=== PATIENT | male | born 1960 | race Caucasian/White ===

== ENCOUNTER → 2017-01-31 | Outpatient (CLI) | payer OTHER ==
[~2017-01-31] MED LIST: ANAPROX DS550 MG PO; ASPIRIN81 M1 PO; ATORVASTATIN CA40 M1 PO; FLEXERIL5 MG PO; FLOVENT HFA12 GM INH; HYDROCHLOROTHIA50 M1 PO; JANUMET 1000 MG1 TA1 PO; LANTUS100 U/ML SQ; LISINOPRIL40 MG PO; MOBIC15 MG PO; NOVOLOG10 ML SQ; ORPHENADRINE E100 MG PO; PERCOCET 325 MG1 TA6 PO; PERCOCET 325 MG1 TA7 PO; TRULICITY0.75 MG/0. SC; ULTRAM50 MG PO; VENTOLIN H0.09 MG/AC INH; VICODIN 5/500 505 MG PO
--- NOTE | ~2017-01-31 | ST ---
[place], [place] EXERCISE STRESS TEST REPORT [facility]: [id number] UNIT #: [id number] ROOM: DOCTOR: MAHSA LOUIS MD BIRTHDATE: [birth year] DOS: 01/31/2017 PROCEDURE: Pharmacologic stress test. INDICATIONS: Precordial chest pain, multiple risk factors. PROCEDURE IN DETAIL: The patient was given a rapid infusion of regadenoson 0.4 mg intravenously followed by a saline flush. He felt warm, dyspneic and developed headache. The resting heart rate of 80 ricardo to 108. The resting blood pressure of 138/74 fell to 130/68. His resting electrocardiogram was normal and no changes occurred with the infusion. 40 seconds after the infusion, he was given radionuclide intravenously. IMPRESSION: 1. Well tolerated infusion of regadenoson. 2. Radionuclide injected. Please see the separate imaging report for further details of the patient's stress test results. MAHSA LOUIS MD CM:STRESS:EXERCISE STRESS TEST REPORT [id number] MAHSA LOUIS MD
== END | disposition home or self-care (01) ==
LOC: CARD 00:42
DX: R07.2 Precordial pain (principal); R42 Dizziness and giddiness

== ENCOUNTER → 2017-02-04 | Outpatient (CLI) | payer OTHER | END | disposition home or self-care (01) | LOC: US 12:30 | DX: I65.23 Occlusion and stenosis of bilateral carotid arteries (principal); I10 Essential (primary) hypertension; E11.9 Type 2 diabetes mellitus without complications; R42 Dizziness and giddiness; R07.9 Chest pain, unspecified; R51 Headache; F17.200 Nicotine dependence, unspecified, uncomplicated ==

== ENCOUNTER → 2017-02-21 | Outpatient (CLI) | payer OTHER | END | disposition home or self-care (01) | LOC: MRI 08:44 | DX: J32.0 Chronic maxillary sinusitis (principal); J32.3 Chronic sphenoidal sinusitis ==

== ENCOUNTER → 2017-04-09 | Day surgery (SDC) | payer OTHER ==
[~2017-04-09] VITALS: Ht 167.6 cm; Wt 76.2 kg
--- NOTE | ~2017-04-09 | O ---
[place], [place] OPERATIVE NOTE [id number] UNIT #: [id number] ROOM: DOCTOR: ABE VILLA MD BIRTHDATE: [birth year] DOS: 04/09/2017 PREOPERATIVE DIAGNOSIS: Vertigo. POSTOPERATIVE DIAGNOSIS: Vertigo. PROCEDURE: Bilateral intratympanic dexamethasone injection. SURGEON: Dr. Villa. ANESTHESIA: General. DESCRIPTION OF PROCEDURE: The patient is being taken to the operating room for bilateral intratympanic dexamethasone injection. He was taken to the OR where IV sedation with propofol was induced. He was positioned supine on the OR table and draped in a standard fashion for ear surgery. The right ear was examined first. A 1 mL of dexamethasone 10 mg per mL was injected into the right middle ear space. The procedure was treated on the left ear without difficulty. At the end of the case, all instrument and sponge counts were correct. The patient was awakened and transported to PACU in satisfactory condition. ABE VILLA MD CM:OPRECORD:OPERATIVE NOTE 1000 1013 ABE VILLA MD 04/10/17 1012 interface
[2017-04-09 12:50] VITALS: BP 144/83
[2017-04-09 13:53] VITALS: BP 100/58
[2017-04-09 14:05] VITALS: BP 104/66
[2017-04-09 14:24] VITALS: BP 103/64
== END | disposition home or self-care (01) ==
LOC: SDC 04-04 12:30
DX: R42 Dizziness and giddiness (principal); I10 Essential (primary) hypertension; J44.9 Chronic obstructive pulmonary disease, unspecified; E11.9 Type 2 diabetes mellitus without complications; Z98.890 Other specified postprocedural states; Z83.3 Family history of diabetes mellitus; Z82.3 Family history of stroke; Z82.49 Family history of ischemic heart disease and other diseases of the circulatory system

== ENCOUNTER → 2017-06-04 | Outpatient (CLI) | payer OTHER | END | disposition home or self-care (01) | LOC: RAD 09:50 | DX: M51.37 Other intervertebral disc degeneration, lumbosacral region (principal); M47.817 Spondylosis without myelopathy or radiculopathy, lumbosacral region ==

== ENCOUNTER 2017-12-02 10:25 | Emergency (ER) | payer OTHER ==
[~2017-12-02] VITALS: Ht 167.6 cm; Wt 77.1 kg
--- NOTE | ~2017-12-02 | EKG ---
[place], [place] ELECTROCARDIOGRAM REPORT NAME: MARIO PRUETT UNIT #: [id number] ROOM: DOCTOR: JUANPABLO LUI MD BIRTHDATE: [birth year] DOS: 12/02/2017 TIME: 1047 hours. Normal sinus rhythm at 81 beats per minute. The tracing is normal. No previous tracing is available for comparison. JUANPABLO LUI MD CM:EKGRPT:ELECTROCARDIOGRAM REPORT [id number] JUANPABLO LUI MD
[~2017-12-02 10:25] MED LIST changes: -ARTIFICIAL TEA3.5 G1 OP; -ARTIFICIAL TEAR15 M9 OP; -PREDNISONE50 MG PO; -VALTREX500 MG PO
[2017-12-02 11:01] LABS: BASO # 0.1 10*3/uL (0.0-0.1); BASO % 1.2 % (0.0-1.0); EOS # 0.5 10*3/uL (0.0-0.4); EOS % 4.7 % (1.0-4.0); HEMATOCRIT 41.7 % (42.0-52.0); HEMOGLOBIN 14.9 g/dl (14.0-18.0); LYMPH # 2.1 10*3/uL (1.3-4.4); LYMPH % 19.5 % (27.0-41.0); MEAN CELL VOLUME 84.2 fl (80.0-94.0); MEAN CORPUSCULAR HGB 30.1 pg (27.0-31.0); MEAN CORPUSCULAR HGB CONC 35.7 g/dl (33.0-37.0); MEAN PLATELET VOLUME 10.9 fl (9.6-12.3); MONO # 0.8 10*3/uL (0.1-1.0); MONO % 7.1 % (3.0-9.0); NEUT # 7.3 10*3/uL (2.3-7.9); PLATELET COUNT AUTOMATED 153 10*3/uL (130-400); RED BLOOD COUNT 4.95 10*6/uL (4.50-5.90); WHITE BLOOD COUNT 10.9 10*3/uL (4.8-10.8)
[2017-12-02 11:11] LABS: ACT PARTIAL THROMBO TIME 23.5 SECONDS (20.8-31.5); INTERNATIONAL NORM RATIO 0.9 (2.0-3.5)
[2017-12-02 11:16] LABS: BUN 15 mg/dl (7-24); CHLORIDE 101 mmol/L (98-107); CREATININE 0.92 mg/dL (0.70-1.30); POTASSIUM 3.7 mmol/L (3.5-5.1); SODIUM 138 mmol/L (136-145)
[2017-12-02 11:17] LABS: TROPONIN I < 0.015 ng/ml (<0.045)
[2017-12-02] MEDS ORDERED: PREDNISONE50 MG PO (11:58)
[2017-12-02] MEDS ORDERED: VALTREX500 MG PO (11:58)
[2017-12-02] MEDS ORDERED: ARTIFICIAL TEAR15 M9 OP (12:00)
[2017-12-02] MEDS ORDERED: ARTIFICIAL TEA3.5 G1 OP (12:00)
== END 2017-12-02 12:31 | disposition home or self-care (01) ==
LOC: ED 10:25
PROVIDERS: Emergency Medicine
DX: G51.0 Bell's palsy (principal); E11.9 Type 2 diabetes mellitus without complications; I10 Essential (primary) hypertension; E78.00 Pure hypercholesterolemia, unspecified; F17.200 Nicotine dependence, unspecified, uncomplicated; Z79.899 Other long term (current) drug therapy; Z79.82 Long term (current) use of aspirin; Z79.4 Long term (current) use of insulin

== ENCOUNTER → 2017-12-02 | Outpatient (CLI) | payer OTHER ==
[~2017-12-02] MED LIST changes: +ARTIFICIAL TEA3.5 G1 OP; +ARTIFICIAL TEAR15 M9 OP; +PREDNISONE50 MG PO; +VALTREX500 MG PO
== END | disposition home or self-care (01) ==
LOC: RAD 13:06
DX: M50.322 Other cervical disc degeneration at C5-C6 level (principal); M50.323 Other cervical disc degeneration at C6-C7 level; M48.02 Spinal stenosis, cervical region; R42 Dizziness and giddiness

== ENCOUNTER 2017-12-14 17:29 | Inpatient (IN) | payer OTHER ==
[~2017-12-14] VITALS: Ht 167.6 cm; Wt 77.1 kg
[~2017-12-14 17:29] MED LIST changes: +ARTIFICIAL TEA3.5 G1 OP; +ARTIFICIAL TEAR15 M9 OP; +ASPIRIN325 M2 PO; -ASPIRIN81 M1 PO; +LANTUS SOL100 UNIT/1 SC; -LANTUS100 U/ML SQ; +PREDNISONE50 MG PO; +VALTREX500 MG PO
[2017-12-14 17:37] VITALS: BP 160/85
[2017-12-14 17:47] LABS: BASO # 0.1 10*3/uL (0.0-0.1); EOS # 0.7 10*3/uL (0.0-0.4); EOS % 5.9 % (1.0-4.0); HEMOGLOBIN 15.1 g/dl (14.0-18.0); LYMPH # 3.3 10*3/uL (1.3-4.4); LYMPH % 28.5 % (27.0-41.0); MEAN CELL VOLUME 87.4 fl (80.0-94.0); MEAN CORPUSCULAR HGB 29.3 pg (27.0-31.0); MEAN CORPUSCULAR HGB CONC 33.6 g/dl (33.0-37.0); MEAN PLATELET VOLUME 11.1 fl (9.6-12.3); MONO # 0.9 10*3/uL (0.1-1.0); MONO % 7.4 % (3.0-9.0); NEUT # 6.6 10*3/uL (2.3-7.9); NEUT % 56.7 % (47.0-73.0); PLATELET COUNT AUTOMATED 213 10*3/uL (130-400); RED BLOOD COUNT 5.15 10*6/uL (4.50-5.90); RED CELL DISTRI WIDTH 13.7 % (0-14.5); WHITE BLOOD COUNT 11.6 10*3/uL (4.8-10.8)
[2017-12-14 17:57] LABS: ACT PARTIAL THROMBO TIME 24.7 SECONDS (20.8-31.5)
[2017-12-14 18:16] LABS: ALBUMIN 3.8 gm/dl (3.1-4.5); ALKALINE PHOSPHATASE 65 U/L (45-117); BUN 14 mg/dl (7-24); CHLORIDE 98 mmol/L (98-107); CREATININE 1.09 mg/dL (0.70-1.30); POTASSIUM 3.9 mmol/L (3.5-5.1); SGOT/AST 18 IU/L (3-35); SGPT/ALT 45 U/L (12-78); SODIUM 136 mmol/L (136-145); TOTAL PROTEIN 6.9 gm/dL (6.4-8.2); TROPONIN I < 0.015 ng/ml (<0.045)
[2017-12-14] MEDS ORDERED: ALOGLIPTIN-MET1 EAC1 PO (19:04)
[2017-12-14] MEDS ORDERED: NEURONTIN800 MG PO (19:05)
[2017-12-14 20:00] VITALS: BP 134/72
[2017-12-15] VITALS: BP 107/66
[2017-12-15 06:54] LABS: BASO # 0.1 10*3/uL (0.0-0.1); BASO % 0.9 % (0.0-1.0); EOS # 0.5 10*3/uL (0.0-0.4); EOS % 4.5 % (1.0-4.0); HEMATOCRIT 44.3 % (42.0-52.0); LYMPH # 2.9 10*3/uL (1.3-4.4); LYMPH % 27.5 % (27.0-41.0); MEAN CELL VOLUME 87.2 fl (80.0-94.0); MEAN CORPUSCULAR HGB 29.5 pg (27.0-31.0); MEAN CORPUSCULAR HGB CONC 33.9 g/dl (33.0-37.0); MEAN PLATELET VOLUME 11.3 fl (9.6-12.3); MONO # 0.6 10*3/uL (0.1-1.0); MONO % 5.7 % (3.0-9.0); NEUT # 6.4 10*3/uL (2.3-7.9); NEUT % 60.9 % (47.0-73.0); PLATELET COUNT AUTOMATED 209 10*3/uL (130-400); RED BLOOD COUNT 5.08 10*6/uL (4.50-5.90); RED CELL DISTRI WIDTH 13.8 % (0-14.5); WHITE BLOOD COUNT 10.6 10*3/uL (4.8-10.8)
[2017-12-15 07:18] LABS: BUN 13 mg/dl (7-24); CHLORIDE 101 mmol/L (98-107); CREATININE 0.92 mg/dL (0.70-1.30); POTASSIUM 3.7 mmol/L (3.5-5.1); SODIUM 136 mmol/L (136-145)
[2017-12-15 07:23] LABS: CHOLESTEROL 96 mg/dL (<200); HDL CHOLESTEROL 33 mg/dl (40-60); LDL CHOLESTEROL 3 mg/dL (9-159); PHOSPHOROUS 3.4 mg/dL (2.5-4.9); TRIGLYCERIDES 300 mg/dl (<150); VLDL CHOLESTEROL 60 mg/dL (6-40)
[2017-12-15 08:00] VITALS: BP 124/80
[2017-12-15 08:46] LABS: VITAMIN D, 25-HYDROXY 20.4 ng/mL (30-100)
[2017-12-15] MEDS ORDERED: AMITRIPTYLINE10 MG PO (10:21)
[2017-12-15] MEDS ORDERED: LEXAPRO10 MG PO (10:21)
[2017-12-15 11:46] VITALS: BP 139/76
[2017-12-15 16:00] VITALS: BP 133/73
[2017-12-15 20:00] VITALS: BP 146/75
[2017-12-16] VITALS: BP 119/67
[2017-12-16 04:00] VITALS: BP 120/71
[2017-12-16 08:00] VITALS: BP 118/65
[2017-12-16] MEDS ORDERED: LEVEMIR100 UNIT/1 SC (11:13)
[2017-12-16] MEDS ORDERED: VITAMIN D-32000 UNI1 PO (11:13)
[2017-12-16] MEDS ORDERED: CHANTIX1 M1 PO (11:13)
[2017-12-16] MEDS ORDERED: LOPRESSOR25 MG PO (11:13)
[2017-12-16 12:00] VITALS: BP 125/97
== END 2017-12-16 12:50 | disposition home or self-care (01) | DRG 392 ==
LOC: ED 17:29 → EDHOLD 17:40 → 5E 17:40
PROVIDERS: Emergency Medicine; Internal Medicine Nephrology
DX: K21.9 Gastro-esophageal reflux disease without esophagitis (principal); D72.1 Eosinophilia; E11.51 Type 2 diabetes mellitus with diabetic peripheral angiopathy without gangrene; E11.65 Type 2 diabetes mellitus with hyperglycemia; E83.41 Hypermagnesemia; E78.5 Hyperlipidemia, unspecified; F17.210 Nicotine dependence, cigarettes, uncomplicated; M54.9 Dorsalgia, unspecified; I10 Essential (primary) hypertension; G89.21 Chronic pain due to trauma; Z79.4 Long term (current) use of insulin; Z71.6 Tobacco abuse counseling; Z83.3 Family history of diabetes mellitus; Z82.49 Family history of ischemic heart disease and other diseases of the circulatory system; Z82.3 Family history of stroke; Z90.49 Acquired absence of other specified parts of digestive tract; Z79.899 Other long term (current) drug therapy; Z79.52 Long term (current) use of systemic steroids

== ENCOUNTER → 2017-12-23 | Outpatient (CLI) | payer OTHER ==
[~2017-12-23] MED LIST changes: +ALOGLIPTIN-MET1 EAC1 PO; +AMITRIPTYLINE10 MG PO; +CHANTIX1 M1 PO; +LEVEMIR100 UNIT/1 SC; +LEXAPRO10 MG PO; +LOPRESSOR25 MG PO; +NEURONTIN800 MG PO; +VITAMIN D-32000 UNI1 PO
== END | disposition home or self-care (01) ==
LOC: RAD 13:47
DX: M47.897 Other spondylosis, lumbosacral region (principal)

== ENCOUNTER 2018-08-17 19:43 | Emergency (ER) | payer OTHER ==
[~2018-08-17] VITALS: Ht 167.6 cm; Wt 76.2 kg
--- NOTE | ~2018-08-17 | EKG ---
[place], [place] ELECTROCARDIOGRAM REPORT NAME: MARIO PRUETT UNIT #: [id number] ROOM: DOCTOR: MALVIN DRAFT REPORT BIRTHDATE: [birth year] [facility] Test Date: 2018-08-17 Test Time: 20:07:36 Pat Name: MARIO PRUETT Department: ER Room: Gender: Journal Entry Audit Clerk: Kapil Hernandez : 1960 Requested By: DENIS FABIAN Order Number: [id number] Reading MD: Zac West MD Measurements Intervals [place] Rate: 93 P: 58 MA: 133 QRS: 74 QRSD: 92 T: 41 QT: 354 QTc: 441 Interpretive Statements Sinus rhythm Baseline wander in lead(s) V1 Electronically Signed On 08-19-2018 14:47:02 PDT by Zac West MD CM:EKGRPT:ELECTROCARDIOGRAM REPORT 06 [id number] DENIS CAMPOS DRAFT REPORT DENIS FABIAN DO
[2018-08-17 20:22] LABS: BASO # 0.2 10*3/uL (0.0-0.1); BASO % 1.5 % (0.0-1.0); EOS # 0.4 10*3/uL (0.0-0.4); EOS % 3.9 % (1.0-4.0); HEMATOCRIT 43.4 % (42.0-52.0); HEMOGLOBIN 15.8 g/dl (14.0-18.0); LYMPH # 3.3 10*3/uL (1.3-4.4); LYMPH % 31.6 % (27.0-41.0); MEAN CELL VOLUME 82.4 fl (80.0-94.0); MEAN CORPUSCULAR HGB CONC 36.4 g/dl (33.0-37.0); MEAN PLATELET VOLUME 10.6 fl (9.6-12.3); MONO # 0.6 10*3/uL (0.1-1.0); MONO % 5.8 % (3.0-9.0); NEUT % 56.8 % (47.0-73.0); PLATELET COUNT AUTOMATED 218 10*3/uL (130-400); RED BLOOD COUNT 5.27 10*6/uL (4.50-5.90); RED CELL DISTRI WIDTH 12.9 % (0-14.5); WHITE BLOOD COUNT 10.5 10*3/uL (4.8-10.8)
[2018-08-17 20:38] LABS: ALBUMIN 3.9 gm/dl (3.1-4.5); ALKALINE PHOSPHATASE 80 U/L (45-117); BUN 12 mg/dl (7-24); CHLORIDE 92 mmol/L (98-107); CREATININE 1.15 mg/dL (0.70-1.30); POTASSIUM 3.5 mmol/L (3.5-5.1); SGOT/AST 14 IU/L (3-35); SGPT/ALT 30 U/L (12-78); SODIUM 130 mmol/L (136-145); TOTAL PROTEIN 7.3 gm/dL (6.4-8.2)
[2018-08-17 20:41] LABS: TROPONIN I < 0.015 ng/ml (<0.045)
[2018-08-17] MEDS ORDERED: PREDNISONE50 MG PO (21:04)
[2018-08-17] MEDS ORDERED: AVPAK AZITHROM250 M1 PO (21:04)
== END 2018-08-17 21:15 | disposition home or self-care (01) ==
LOC: ED 19:43
PROVIDERS: Student in an Organized Health Care Education/Training Program
DX: J44.1 Chronic obstructive pulmonary disease with (acute) exacerbation (principal); E11.9 Type 2 diabetes mellitus without complications; E78.5 Hyperlipidemia, unspecified; I10 Essential (primary) hypertension; Z79.899 Other long term (current) drug therapy; Z79.82 Long term (current) use of aspirin; Z79.4 Long term (current) use of insulin; Z87.891 Personal history of nicotine dependence

== ENCOUNTER 2018-12-24 15:16 | Inpatient (IN) | payer OTHER ==
[2018-12-24] VITALS (8 sets, daily range): BP systolic 170–217; BP diastolic 80–100
[~2018-12-24] VITALS: Ht 167.6 cm; Wt 77.1 kg
--- NOTE | ~2018-12-24 | EKG ---
[place], [place] ELECTROCARDIOGRAM REPORT NAME: MARIO PRUETT UNIT #: [id number] ROOM: 411 DOCTOR: MALVIN DRAFT REPORT BIRTHDATE: [birth year] [facility] Test Date: 2018-12-24 Test Time: 15:45:48 Pat Name: MARIO PRUETT Department: Room: 411 Gender: M Senior Java Web Developer: Marah Renner : 1960 Requested By: PATTIE BENNETT DNP Order Number: [id number] Reading MD: Jayy Naqvi MD Measurements Intervals [place] Rate: 76 P: 76 [place]: 133 QRS: 85 QRSD: 93 T: 72 QT: 362 QTc: 408 Interpretive Statements Sinus rhythm RSR' in V1 or V2, probably normal variant Compared to ECG 08/17/2018 20:07:36 No significant change Electronically Signed On 12-25-2018 17:29:20 PST by Jayy Naqvi MD CM:EKGRPT:ELECTROCARDIOGRAM REPORT [id number] 1729 PATTIE FERNANDESANY DRAFT REPORT PATTIE BENNETT DNP
--- NOTE | ~2018-12-24 | EKG ---
[place], [place] ELECTROCARDIOGRAM REPORT NAME: MARIO PRUETT UNIT #: [id number] ROOM: 411 DOCTOR: MALVIN DRAFT REPORT BIRTHDATE: [birth year] [facility] Test Date: 2018-12-24 Test Time: 18:48:28 Pat Name: MARIO PRUETT Department: Room: 411 Gender: M Ring Sewer: Marah Renner : 1960 Requested By: PATTIE BENNETT DNP Order Number: [id number] Reading MD: Jayy Naqvi MD Measurements Intervals [place] Rate: 72 P: 42 [place]: 134 QRS: 57 QRSD: 98 T: 23 QT: 394 QTc: 432 Interpretive Statements Sinus rhythm Borderline ST elevation, anterior leads No change from earlier ECG this date Electronically Signed On 12-25-2018 17:37:12 PST by Jayy Naqvi MD CM:EKGRPT:ELECTROCARDIOGRAM REPORT [id number] PATTIE BENNETT DNP EPIPHANY DRAFT REPORT PATTIE BENNETT DNP
--- NOTE | ~2018-12-24 | EKG ---
[place], [place] ELECTROCARDIOGRAM REPORT NAME: MARIO PRUETT UNIT #: [id number] ROOM: 411 DOCTOR: MALVIN DRAFT REPORT BIRTHDATE: [birth year] [facility] Test Date: 2018-12-24 Test Time: 21:36:09 Pat Name: MARIO PRUETT Department: Room: 411 Gender: M Supervisor Reclamation: Marah Renner : 1960 Requested By: PATTIE BENNETT DNP Order Number: [id number] Reading MD: Jayy Naqvi MD Measurements Intervals [place] Rate: 70 P: 36 [place]: 140 QRS: 45 QRSD: 93 T: 27 QT: 386 QTc: 417 Interpretive Statements Sinus rhythm RSR' in V1 or V2, probably normal variant No change from earlier ECG this date Electronically Signed On 12-25-2018 17:41:25 PST by Jayy Naqvi MD CM:EKGRPT:ELECTROCARDIOGRAM REPORT [id number] PATTIE BENNETT DNP EPIPHANY DRAFT REPORT PATTIE BENNETT DNP
[~2018-12-24 15:16] MED LIST changes: +ASPIRIN ADULT L81 M1 PO; -ASPIRIN325 M2 PO; -ATORVASTATIN CA40 M1 PO; +AVPAK AZITHROM250 M1 PO; +LIPITOR80 MG PO; +NEURONTIN600 MG PO; -NEURONTIN800 MG PO
[2018-12-24 15:55] LABS: BASO # 0.2 10*3/uL (0.0-0.1); BASO % 1.7 % (0.0-1.0); EOS # 0.4 10*3/uL (0.0-0.4); EOS % 4.4 % (1.0-4.0); HEMATOCRIT 48.7 % (42.0-52.0); HEMOGLOBIN 16.1 g/dl (14.0-18.0); LYMPH # 2.1 10*3/uL (1.3-4.4); LYMPH % 21.4 % (27.0-41.0); MEAN CELL VOLUME 86.3 fl (80.0-94.0); MEAN CORPUSCULAR HGB 28.5 pg (27.0-31.0); MEAN CORPUSCULAR HGB CONC 33.1 g/dl (33.0-37.0); MEAN PLATELET VOLUME 11.8 fl (9.6-12.3); MONO # 0.7 10*3/uL (0.1-1.0); MONO % 7.3 % (3.0-9.0); NEUT # 6.4 10*3/uL (2.3-7.9); NEUT % 64.9 % (47.0-73.0); PLATELET COUNT AUTOMATED 160 10*3/uL (130-400); RED BLOOD COUNT 5.64 10*6/uL (4.50-5.90); RED CELL DISTRI WIDTH 14.6 % (0-14.5); WHITE BLOOD COUNT 9.8 10*3/uL (4.8-10.8)
[2018-12-24 16:03] LABS: ACT PARTIAL THROMBO TIME 23.3 SECONDS (20.8-31.5); INTERNATIONAL NORM RATIO 0.9 (2.0-3.5)
[2018-12-24 16:19] LABS: ALBUMIN 4.2 gm/dl (3.1-4.5); ALKALINE PHOSPHATASE 113 U/L (45-117); BUN 18 mg/dl (7-24); CHLORIDE 107 mmol/L (98-107); CREATININE 0.94 mg/dL (0.70-1.30); POTASSIUM 4.1 mmol/L (3.5-5.1); SGOT/AST 14 IU/L (3-35); SGPT/ALT 27 U/L (12-78); SODIUM 138 mmol/L (136-145); TOTAL PROTEIN 7.8 gm/dL (6.4-8.2)
[2018-12-24 16:20] LABS: TROPONIN I < 0.015 ng/ml (<0.045)
[2018-12-24] MEDS ORDERED: BASAG SOL SC (17:37)
--- NOTE | 2018-12-24 17:42 | NUR ---
Dr. Sheppard notified that pt MBP was 190/100.
--- NOTE | 2018-12-24 18:45 | NUR ---
MBP after hydralazine was 170/90.
--- NOTE | 2018-12-24 18:52 | NUR ---
Notified Dr. Sheppard on bp past hydralazine. States to monitor for now.
[2018-12-25] VITALS (8 sets, daily range): BP systolic 120–174; BP diastolic 62–92
--- NOTE | 2018-12-25 01:26 | NUR ---
DR JENKINS NOTIFIED PT'S BP ELEVATED
--- NOTE | 2018-12-25 02:23 | NUR ---
1X CLONIDINE GIVEN FOR ELEVATED BP READING. WILL MONITOR.
[2018-12-25 03:35] LABS: BILIRUBIN NEGATIVE (NEGATIVE); BLOOD NEGATIVE (NEGATIVE); CLARITY CLEAR (CLEAR); COLOR YELLOW (YELLOW); GLUCOSE 3+ (NEGATIVE); KETONE NEGATIVE (NEGATIVE); LEUKO ESTERASE NEGATIVE (NEGATIVE); NITRITE NEGATIVE (NEGATIVE); SPECIFIC GRAVITY 1.015 (1.005-1.030); UROBILINOGEN 0.2 E.U./dl (0.2-1.0)
--- NOTE | 2018-12-25 03:42 | NUR ---
REPEAT BP 174/88 DR JENKINS NOTIFIED. NO NEW ORDERS.
[2018-12-25 03:44] LABS: RBC 0-2 rbc/hpf (0-2); WBC 0-2 wbc/hpf (0-5)
--- NOTE | 2018-12-25 03:59 | NUR ---
TYLENOL PROVIDED FOR C/O BEJARANO AND GENERALIZED DISCOMFORT. 1X CLONIDINE GIVEN FOR ELEVATED BP READING.
[2018-12-25 06:42] LABS: BASO # 0.1 10*3/uL (0.0-0.1); BASO % 1.3 % (0.0-1.0); EOS # 0.4 10*3/uL (0.0-0.4); EOS % 4.8 % (1.0-4.0); HEMATOCRIT 43.9 % (42.0-52.0); HEMOGLOBIN 14.5 g/dl (14.0-18.0); LYMPH # 1.9 10*3/uL (1.3-4.4); LYMPH % 24.2 % (27.0-41.0); MEAN CELL VOLUME 85.2 fl (80.0-94.0); MEAN CORPUSCULAR HGB 28.2 pg (27.0-31.0); MEAN PLATELET VOLUME 11.7 fl (9.6-12.3); MONO # 0.6 10*3/uL (0.1-1.0); MONO % 7.9 % (3.0-9.0); NEUT # 4.9 10*3/uL (2.3-7.9); NEUT % 61.7 % (47.0-73.0); PLATELET COUNT AUTOMATED 134 10*3/uL (130-400); RED BLOOD COUNT 5.15 10*6/uL (4.50-5.90); RED CELL DISTRI WIDTH 14.6 % (0-14.5)
[2018-12-25 07:08] LABS: ALBUMIN 3.5 gm/dl (3.1-4.5); ALKALINE PHOSPHATASE 71 U/L (45-117); BUN 14 mg/dl (7-24); CHLORIDE 106 mmol/L (98-107); CHOLESTEROL 78 mg/dL (<200); CREATININE 0.77 mg/dL (0.70-1.30); FREE T4 0.91 ng/dl (0.76-1.46); HDL CHOLESTEROL 26 mg/dl (40-60); LDL CHOLESTEROL 31 mg/dL (9-159); PHOSPHOROUS 3.9 mg/dL (2.5-4.9); POTASSIUM 3.7 mmol/L (3.5-5.1); SGOT/AST 10 IU/L (3-35); SGPT/ALT 22 U/L (12-78); SODIUM 142 mmol/L (136-145); TOTAL PROTEIN 6.5 gm/dL (6.4-8.2); TRIGLYCERIDES 104 mg/dl (<150); VLDL CHOLESTEROL 21 mg/dL (6-40)
--- NOTE | 2018-12-25 09:00 | NUR ---
Head Of Advertising in to talk to patient. Patient states lives at home with . There are few steps in the home. Physician: ezio carrillo Pharmacy: [facility] Home health services: none Patient's level of ADLs: INDEPENDENT Patient has working utilities: all working DME: none Follow-up physician's appointment after d/c: will be made by hospitalist nurse director upon discharge Does patient want to access PORTAL?: no Discharge plan discussed with patient, patient lives at home with , he is in adls and ambulation, patient states he will be going home when able and denies any home needs. JENNY BORRERO
--- NOTE | 2018-12-25 12:08 | NUR ---
Notified Dr. Fuentes of elevated bp of 170/90.
--- NOTE | 2018-12-25 14:01 | NUR ---
Medicated with percocet per prn order for complaints of pain to back and rt shoulder. States pain remains 05/13.
[2018-12-26 00:36] VITALS: BP 146/60
[2018-12-26 07:54] VITALS: BP 161/76; BP 162/76
--- NOTE | 2018-12-26 09:00 | NUR ---
case management visits with patient, patient states he will be going home when able and denies any home needs
--- NOTE | 2018-12-26 09:10 | NUR ---
ASSESSMENT COMPLETE. PT PLEASANT AND COOROPERATIVE. NO COMPLAINTS AT THIS TIME. SPNRCC CHANDLER SAGE
[2018-12-26] MEDS ORDERED: LOPRESSOR25 MG PO (09:54)
[2018-12-26] MEDS ORDERED: AMLODIPINE BESYL5 MG PO (09:54)
[2018-12-26] MEDS ORDERED: REXULTI1 MG PO (09:56)
--- NOTE | 2018-12-26 10:30 | NUR ---
D/C PTS IV, TOLERATED WELL,CATHETER INTACT. SPNRCC CHANDLER SAGE
--- NOTE | 2018-12-26 10:40 | NUR ---
Discharge instructions reviewed with patient/family. Patient receptive and verbalizes understanding. Follow-up care arranged. Written instructions given to patient/family. PATIENT DISCHARGED TO HOME WITH . ZEV CARDONA
== END 2018-12-26 10:40 | disposition home or self-care (01) | DRG 305 ==
LOC: ED 15:16 → 4E 17:04 → EDHOLD 17:04 → 4E 17:25
PROVIDERS: Internal Medicine Nephrology; Nurse Practitioner Family; ADMIT Emergency Medicine
DX: I16.1 Hypertensive emergency (principal); K21.9 Gastro-esophageal reflux disease without esophagitis; D72.810 Lymphocytopenia; E83.41 Hypermagnesemia; E11.65 Type 2 diabetes mellitus with hyperglycemia; E66.3 Overweight; I10 Essential (primary) hypertension; E78.5 Hyperlipidemia, unspecified; R07.89 Other chest pain; M54.9 Dorsalgia, unspecified; G89.29 Other chronic pain; F32.9 Major depressive disorder, single episode, unspecified; F17.210 Nicotine dependence, cigarettes, uncomplicated; J44.9 Chronic obstructive pulmonary disease, unspecified; Z71.6 Tobacco abuse counseling; Z79.4 Long term (current) use of insulin; Z82.49 Family history of ischemic heart disease and other diseases of the circulatory system; Z83.3 Family history of diabetes mellitus; Z82.3 Family history of stroke; Z79.82 Long term (current) use of aspirin; Z79.899 Other long term (current) drug therapy; Z68.27 Body mass index [BMI] 27.0-27.9, adult

== ENCOUNTER 2019-01-29 10:55 | Emergency (ER) | payer OTHER ==
[~2019-01-29] VITALS: Ht 167.6 cm; Wt 75.7 kg
--- NOTE | ~2019-01-29 | EKG ---
[place], [place] ELECTROCARDIOGRAM REPORT NAME: MARIO PRUETT UNIT #: [id number] ROOM: DOCTOR: MALVIN DRAFT REPORT BIRTHDATE: [birth year] [facility] Test Date: 2019-01-29 Test Time: 11:34:11 Pat Name: MARIO PRUETT Department: Room: Gender: [place] House Operator: : 1960 Requested By: SYLVESTER BURNETT Order Number: [id number] Reading MD: Jono Sandoval MD Measurements Intervals [place] Rate: 72 P: 53 VT: 141 QRS: 75 QRSD: 89 T: 47 QT: 375 QTc: 411 Interpretive Statements Sinus rhythm Compared to ECG 12/24/2018 21:36:09 No significant changes Electronically Signed On 01-31-2019 7:01:53 PDT by Jono Sandoval MD CM:EKGRPT:ELECTROCARDIOGRAM REPORT [id number] SYLVESTER COOMBS DRAFT REPORT SYLVESTER BURNETT MD
[~2019-01-29 10:55] MED LIST changes: +AMLODIPINE BESYL5 MG PO; +BASAG SOL SC; +REXULTI1 MG PO
[2019-01-29] MEDS ORDERED: HYDROCHLOROTHIA25 M1 PO (11:58)
[2019-01-29 12:00] LABS: BUN 11 mg/dl (7-24); CHLORIDE 102 mmol/L (98-107); CREATININE 0.87 mg/dL (0.70-1.30); SODIUM 134 mmol/L (136-145)
[2019-01-29 12:04] LABS: TROPONIN I < 0.015 ng/ml (<0.045)
== END 2019-01-29 12:12 | disposition home or self-care (01) ==
LOC: ED 10:55
PROVIDERS: Emergency Medicine
DX: I10 Essential (primary) hypertension (principal); G89.29 Other chronic pain; J44.9 Chronic obstructive pulmonary disease, unspecified; E11.51 Type 2 diabetes mellitus with diabetic peripheral angiopathy without gangrene; E78.00 Pure hypercholesterolemia, unspecified; F17.290 Nicotine dependence, other tobacco product, uncomplicated; Z79.899 Other long term (current) drug therapy; Z79.82 Long term (current) use of aspirin; Z79.4 Long term (current) use of insulin